=== PATIENT | male | born 1980 | race Caucasian/White ===

== ENCOUNTER 2017-10-14 11:41 | Inpatient (IN) | payer OTHER ==
[~2017-10-14] VITALS: Ht 190.5 cm; Wt 86.2 kg
--- NOTE | 2017-10-14 11:45 | NUR ---
Pre Admission Assessment Shank Boner asked to evaluate pt for appropriateness for admission to [facility]. Shank Boner encounters pt in intake office, dressed in street clothes. A/O x4 and able to make needs known. Pt has an anxious affect with depressed mood. Pt with poor eye contact, fidgety and hyperactive. Pt complains of nausea, anxiety, tremors, tactile hallucinations and chills. Initial CIWA 20. VS 158/97, 96, 97.8, 18 and 96%. Pt in stable physical condition, denies any medical history. Dr. Soto present for interview and fha underwriter conducted entire admit assessment on pre-interview. Pt in need of medical management of ETOH withdrawals. Will continue to monitor, support and encourage according to plan of care.
[2017-10-14] MEDS ORDERED: DICYCLOMINE HCL 20 MG TABLET PO PRN (12:30)
[2017-10-14] MEDS ORDERED: NICOTINE POLACRILEX 4 MG GUM-PK OF TEN BC PRN (12:30)
[2017-10-14] MEDS ORDERED: LORAZEPAM 2 MG/1 ML VIAL IM PRN (12:30)
[2017-10-14] MEDS ORDERED: ONDANSETRON 4 MG/2 ML VIAL IM PRN (12:30)
[2017-10-14] MEDS ORDERED: IBUPROFEN 400 MG TABLET PO PRN (12:30)
[2017-10-14] MEDS ORDERED: ONDANSETRON ODT 4 MG TAB.RAPDIS SL PRN (12:30)
[2017-10-14] MEDS ORDERED: THIAMINE HCL 200 MG/2 ML VIAL IM ONE (12:30)
[2017-10-14] MEDS ORDERED: ACETAMINOPHEN 325 MG TABLET PO PRN (12:30)
[2017-10-14] MEDS ORDERED: LORAZEPAM 1 MG TABLET PO PRN (12:30)
[2017-10-14] MEDS ORDERED: NICOTINE 14 MG/24HR PATCH TD PRN (12:30)
[2017-10-14] MEDS ORDERED: MAG HYDROX/AL HYDROX/SIMETH 30 ML LIQUID UDC PO PRN (12:30)
[2017-10-14] MEDS ORDERED: diphenhydrAMINE 50 MG CAPSULE PO PRN (12:30)
[2017-10-14] MEDS ORDERED: MIRALAX 17 GM POWD.PACK PO PRN (12:30)
[2017-10-14] MEDS ORDERED: LOPERAMIDE HCL 2 MG CAPSULE PO PRN ×2 (12:30)
--- NOTE | 2017-10-14 12:40 | NUR ---
Admission Pt presents to [facility] for admission for medical management of ETOH withdrawals. Pt presents in active withdrawal, with initial CIWA of 20. Pt complains of nausea, anxiety, chills, Tactile Hallucinations and sensitivity to light. Pt has been drinking approxiametly 3 to 4 pints of hard ETOH or 4 or 5 bottles of wine daily, based upon availability. Pt endorses having no beverage of choice and has been using what he can find. Pt had been sober for 72 days following a [address] [facility] 77 days ago. Pt relapsed after 72 days of sobriety and has been drinking for 14 days. Pt's last use was in flight from [place], pt consumed 4 or 5 shots of ETOH. 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 Pt resides in [place] with his and 4 children. Pt endorses having relapsed d/t not following his Sponsors lead and getting away from doing the steps. " I stopped going to meeting, I stopped the steps ... " Pt does endorse a longest period of sobriety about 3/4 years ago, when pt was sober for 1 year. Pt endorses a need for continued follow-up and continued sobriety. Pt is planing on going t oa 28 day RTC after completing his detoxification. This will be pt's first RTC and pt is hopeful and motivated. Pt denies any PMH/PPH. Pt does have a history of withdrawal induced seizures a couple years ago. Pt denies "overdose", but endorses "black-out drinking," " my tells me of things I don't remember." Pt denies any 5150 or psych hospitalizations. Pt states, " I am tired, I can't do this anymore." Pt endorses a PCP of Dr. Anthony Silva in [place]. Pt had prescribed pt Librium, pt stopped taking about 3 or 4 weeks. Pt brought with to the hospital, pt signed for and delivered t opharmacy. Pt aware medication will be destroyed.
[2017-10-14] MEDS: LORAZEPAM 1 MG TABLET PO SCH ×3 (13:17→21:49)
[2017-10-14] MEDS: LORAZEPAM 1 MG TABLET PO PRN (14:37)
--- NOTE | 2017-10-14 14:37 | NUR ---
PRN Zofran(IM) and Ativan Pt complain of emesis x3, mostly phlegm from pt "gagging." Director Biomedical Engineering administered Zofran IM per order for immediate relief of nausea. Director Biomedical Engineering conducted PRN CIWA assessment, pt scored 24 and typewriter tester administered medication per order, pt tolerating both well. Will continue to monitor, support and encourage according to plan of care.
[2017-10-14 14:48] LABS: *AMPHETAMINE, URINE NEGATIVE (NEGATIVE); *BARBITURATE, URINE NEGATIVE (NEGATIVE); *CANNABINOID, URINE NEGATIVE (NEGATIVE); *COCCAINE, URINE NEGATIVE (NEGATIVE); *OPIATE, URINE NEGATIVE (NEGATIVE); *PHENCYCLIDINE SCREEN,URINE NEGATIVE (NEGATIVE)
--- NOTE | 2017-10-14 15:07 | NUR ---
PRN Re-Assessment No further bouts of emesis and pt is resting. Will continue to monitor, support and encourage according to plan of care.
[2017-10-14 15:28] LABS: BASOPHILS # (AUTO) 0.1 K/uL (0.0-8.0); BASOPHILS % (AUTO) 0.5 % (0.0-2.0); EOSINOPHILS # (AUTO) 0.1 K/uL (0.0-0.7); EOSINOPHILS % (AUTO) 0.6 % (0.0-7.0); HEMATOCRIT 46.5 % (36.7-47.1); HEMOGLOBIN 16.2 g/dL (12.5-16.3); LYMPHOCYTES # (AUTO) 2.2 K/uL (20.0-40.0); LYMPHOCYTES % (AUTO) 14.5 % (20.5-51.5); MEAN CORPUSCULAR HEMOGLOBIN 31.4 uug (23.8-33.4); MEAN CORPUSCULAR HGB CONC 35 g/dL (32.5-36.3); MEAN CORPUSCULAR VOLUME 90.3 fL (73.0-96.2); MONOCYTES # (AUTO) 1.2 K/uL (2.0-10.0); MONOCYTES % (AUTO) 7.5 % (0.0-11.0); NEUTROPHILS # (AUTO) 11.7 K/uL (1.8-8.9); NEUTROPHILS % (AUTO) 76.9 % (38.5-71.5); PLATELET COUNT (AUTO) 225 K/uL (152-348); RED BLOOD CELL COUNT(AUTO) 5.16 MIL/uL (4.06-5.63); WHITE BLOOD COUNT (AUTO) 15.3 K/uL (3.6-10.2)
--- NOTE | 2017-10-14 15:37 | NUR ---
PRN Ativan Re-Assessment Re-Assessment CIWA 15, pt endorses relief from nausea, chills, tremors have improved and TH have decreased. Will continue to monitor, support and encourage according to plan of care.
[2017-10-14 15:39] LABS: BILIRUBIN,TOTAL 0.6 mg/dL (0.2-1.0); CREATININE 1.2 mg/dL (0.6-1.3); MAGNESIUM 1.4 mg/dL (1.8-2.4); POTASSIUM 3.9 mmol/L (3.5-5.1); TOTAL PROTEIN, SERUM 6.3 g/dL (6.4-8.2)
[2017-10-14 16:30] VITALS: BP 122/86
--- NOTE | 2017-10-14 19:04 | NUR ---
End of Shift Airport Planner provided report on 37 year old male admitted by bid writer this afternoon. Pt was admitted for medical management of ETOH withdrawals. Pt reports NKA, full code and regular diet. Pt reports no PMH/PPH. Pt does have a history of withdrawal induced seizures, last couple years ago. Pt was admitted with initial CIWA 20. Was administered a PRN dose of Ativan 2mg(Anxiety/withdrawals) at 1437 d/t CIWA 24. Pt had emesis x3, complained of anxiety, chills, nausea and had moderate tremors. Pt tolerated well and re-assessed CIWA 15. Tremors and nausea and chills have improved, per pt. Last CIWA 11. Pt is cooperative and anxious. A/O x4 and makes his needs known. Clear of thought and speech with a linear thought process. Bed in low position, wheels locked and side rails up x2.
--- NOTE | 2017-10-14 19:30 | NUR ---
Start of Shift Note Received a 37 y/o male px, admitted for medically supervised withdrawal from ETOH. Px is placed on Ativan taper started today 10/14/2017. Last reported CIWA 11 by AM shift nurse. During the rounds at 1930, px is awake on bed in fowlers position. Px looks unshaven and sweaty. Px stated that his anxiety is 5/10. Px complained of nausea. Bed on lowest position, side rails up 2x, and call light within reach.
[2017-10-14 20:00] VITALS: BP 140/98
--- NOTE | 2017-10-14 21:48 | NUR ---
PRN meds Px received Zofran 4 mg/tab, 1 tab SL for nausea, Clonidine 0.1 mg/tab, 1 tab PO for BP= 140/98 and Motrin 400 mg/tab, 1 tab for body aches of 5/10. We'll continue to monitor.
[2017-10-14] MEDS: CLONIDINE HCL 0.1 MG TABLET PO PRN (21:49)
--- NOTE | 2017-10-14 22:20 | NUR ---
Reassessment of nausea Px stated that his nausea improved.
[2017-10-14 22:50] VITALS: BP 141/87
--- NOTE | 2017-10-14 22:50 | NUR ---
Reassessment of body aches Px stated that his body aches is now 2-3/10 from 11/10 after an hour of administration of Motrin 400 mg PO.
--- NOTE | 2017-10-14 22:50 | NUR ---
Reassessment of BP Px's BP= 141/87 after an hour of administration of Clonidine 0.1 mg PO. We'll continue to monitor.
[2017-10-15] VITALS: BP 147/90
[2017-10-15 04:00] VITALS: BP 143/88
[2017-10-15 06:07] LABS: HEPATITIS B SURFACE AG Negative (Negative)
--- NOTE | 2017-10-15 07:10 | NUR ---
START OF SHIFT PATIENT UIS A 37 YR OLD MALE ADMITTED TO [facility] ON 10/14/17 FOR A MEDICALLY SUPERVISED WITHDRAWAL FROM ALCOHOL. PATIENT IS ON A 5 DAY ATIVAN TAPER AND THIS IS DAY 2. PRN MEDS GIVEN ON PM SHIFT : ZOFRAN, MOTRIN AND CLONIDINE. PATIENT SLEPT FOR 7+ HOURS AND LAST CIWA @ 0400 WAS 8. PATIENT IS ASLEEP IN BED AT THIS TIME, BREATHING EVEN AND UNLABORED, CALL LIGHT WITHIN REACH, WILL CONTINUE TO FOLLOW MD PLAN OF CARE.
--- NOTE | 2017-10-15 07:13 | NUR ---
End of Shift Note During the shift at 2148, px received Zofran 4 mg SL for nausea, it was effective. Clonidine 0.1 mg PO for high BP. BP at 0400 was 143/88. Motrin 400 mg PO given for pain of 5/10. It was effective. Px's oral intake is 1,100 ml, voided 2x, No BM. Px slept for 7.5 hours. At 0630, px is asleep on bed in right side lying position. Bed on lowest position, side rails up 2x, and call light within reach. Last CIWA 8. Px endorsed to AM shift nurse.
[2017-10-15 08:00] VITALS: BP 153/105
[2017-10-15] MEDS: LORAZEPAM 1 MG TABLET PO SCH ×3 (08:00→21:12)
[2017-10-15] MEDS: MULTIVITAMINS,THERAPEUTIC TABLET PO SCH (08:00)
[2017-10-15] MEDS: FOLIC ACID 1 MG TABLET PO SCH (08:00)
--- NOTE | 2017-10-15 08:00 | NUR ---
PRN CLONIDINE BP 153/105, 0.1MG PO CLONIDINE GIVEN, WILL RECHECK IN 1 HR NO C/O HEADACHE OR BLURRED VISION
[2017-10-15] MEDS: CLONIDINE HCL 0.1 MG TABLET PO PRN (08:01)
[2017-10-15] MEDS: THIAMINE HCL 100 MG TABLET PO SCH (08:01)
[2017-10-15] MEDS ORDERED: MAGNESIUM OXIDE 400 MG TABLET PO ONE (09:00)
[2017-10-15] MEDS ORDERED: TUBERCULIN,PURIF.PROT.DERIV. 5 TU/0.1 ML TEST ID ONE (09:00)
--- NOTE | 2017-10-15 09:00 | NUR ---
PPD DECLINED BY PATIENT
--- NOTE | 2017-10-15 09:00 | NUR ---
PRN REASSESS BP 126/91, PRN CLONIDINE EFFECTIVE, WILL CONTINUE TO MONITOR CLOSELY
[2017-10-15 12:30] VITALS: BP 140/100
[2017-10-15] MEDS: LORAZEPAM 1 MG TABLET PO PRN (12:50)
--- NOTE | 2017-10-15 12:50 | NUR ---
PRN ATIVAN 2MG PO ATIVAN GIVEN FOR INCREASED ANXIETY CIWA 14, WILL REASSESS
--- NOTE | 2017-10-15 13:50 | NUR ---
PRN REASSESS ATIVAN 2MG PO EFFECTIVE, PT STATES HE FEELS LESS ANXIOUS CIWA NOW 8 ( WAS 13)
[2017-10-15 16:00] VITALS: BP 132/92
--- NOTE | 2017-10-15 18:52 | NUR ---
END OF SHIFT : PATIENT IS A 37 YR OLD MALE ADMITTED TO [facility] ON 10/14/17 FOR A MEDICALLY SUPERVISED WITHDRAWAL FROM ALCOHOL. PATIENT IS ON A 5 DAY ATIVAN TAPER AND THIS IS DAY 2. PATIENTS WITHDRAWAL SYMPTOMS INCLUDE : DIAPHORESIS, HEADACHE, TROUBLE CONCENTRATING, SEVERE ANXIETY AND AGITATION. PATIENT HAS ATTENDED ALL GROUPS TODAY AND IS INTERACTING WITH HIS PEERS. PRN MEDS GIVEN ON THIS SHIFT : CLONIDINE 0.1MG PO AND ATIVAN 2MG PO. PATIENT HAD A FLUID INTAKE OF 2350 ML,3 VOIDS AND 2 BM. LAST CIWA WAS 10 @ 1600. CONTINUE TO FOLLOW MD PLAN OF CARE.
--- NOTE | 2017-10-15 19:30 | NUR ---
START OF SHIFT NOTE : Pt. is 37 year old male admitted admitted to [facility] on 10/14/2017 for ETOH medically supervised withdrawal. Pt reports NKA, full code and regular diet. Pt. placed on Ativan taper, started on 10/14/2017, tolerating well. Pt reports no PMH/PPH. Pt does have a history of withdrawal induced seizures, last couple years ago. Last CIWA=10 at 16:00 , PRN Clonidine, Ativan given as ordered during a day shift. Pt. states he feels better, thinks a lot about his professional and private future, he is cooperative, friendly, but has sad facial expression, complains of difficulty falling and staying asleep, increased level of anxiety. Encouraged patient to participate in group therapies and verbalize feelings.Encouraged to independently perform hygiene care. Education provided in safety and hygiene care. Patient verbalized understanding. Safety measures in place : bed on lowest position with side rails x2 up for safety, all light within reach. Will continue to monitor closely and offer help.
[2017-10-15 20:00] VITALS: BP 142/95
--- NOTE | 2017-10-15 21:00 | NUR ---
PRN VISTARIL, DESYREL Pt. complains of difficulty falling asleep, insomnia, increased level of anxiety. PRN VISTARIL, DESYREL given as ordered. Safety measures in place : bed on lowest position with side rails x2 up for safety, call light within reach. Will continue to monitor closely and offer help.
[2017-10-15] MEDS: TRAZODONE 50 MG TABLET PO PRN (21:12)
[2017-10-15] MEDS: HYDROXYZINE PAMOATE 25 MG CAPSULE PO PRN (21:12)
--- NOTE | 2017-10-15 22:00 | NUR ---
RE-ASSESSMENT MILA UMAÑA Pt. is sleeping, RR=16, unlabored and even . Safety measures in place : bed on lowest position with side rails x2 up for safety, call light within reach. Will continue to monitor closely and offer help.
--- NOTE | 2017-10-16 06:44 | NUR ---
END OF SHIFT NOTE : Pt. is 37 year old male admitted admitted to [facility] on 10/14/2017 for ETOH medically supervised withdrawal. Pt reports NKA, full code and regular diet. Pt. placed on Ativan taper, started on 10/14/2017, tolerating well. PRN BENADRYL given during assistant shift supervisor. 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 He also took shower late in the evening, shaved himself. CIWA taken when pt. was awake, last CIWA=8 at 04:00 . Intake= 1000ml, voided x2, BM=x1 , slept=7 1/2 hours. Safety measures in place : bed on lowest position with side rails x2 up for safety, all light within reach. Will continue to monitor closely and offer help.
--- NOTE | 2017-10-16 07:23 | NUR ---
Start of shift note; Received report from night nurse. Patient is a 37 year old male admitted on 10/14/17 for ETOH withdrawals. Patient was placed on Ativan taper. Patient is AOX4, appears anxious but cooperative, complaining of hot and cold sweats. Educated patient regarding the importance of compliance to treatment and medication regime. Encouraged patient to participate in group Therapy and activities. All safety measures. Will continue to monitor patient.
[2017-10-16 07:41] LABS: BILIRUBIN,DIRECT 0.1 mg/dL (0.0-0.2); BILIRUBIN,TOTAL 0.4 mg/dL (0.2-1.0); CREATININE 1.1 mg/dL (0.6-1.3); MAGNESIUM 1.9 mg/dL (1.8-2.4); TOTAL PROTEIN, SERUM 5.7 g/dL (6.4-8.2)
[2017-10-16 08:00] VITALS: BP 131/89
[2017-10-16 08:08] LABS: BASOPHILS % (AUTO) 0.5 % (0.0-2.0); EOSINOPHILS # (AUTO) 0.5 K/uL (0.0-0.7); HEMATOCRIT 43.5 % (36.7-47.1); HEMOGLOBIN 14.9 g/dL (12.5-16.3); LYMPHOCYTES # (AUTO) 1.8 K/uL (20.0-40.0); LYMPHOCYTES % (AUTO) 19.8 % (20.5-51.5); MEAN CORPUSCULAR HEMOGLOBIN 31.4 uug (23.8-33.4); MEAN CORPUSCULAR HGB CONC 34 g/dL (32.5-36.3); MEAN CORPUSCULAR VOLUME 91.4 fL (73.0-96.2); MONOCYTES % (AUTO) 10.8 % (0.0-11.0); NEUTROPHILS # (AUTO) 5.7 K/uL (1.8-8.9); NEUTROPHILS % (AUTO) 62.9 % (38.5-71.5); PLATELET COUNT (AUTO) 172 K/uL (152-348); RED BLOOD CELL COUNT(AUTO) 4.76 MIL/uL (4.06-5.63)
[2017-10-16] MEDS: FOLIC ACID 1 MG TABLET PO SCH (08:26)
[2017-10-16] MEDS: THIAMINE HCL 100 MG TABLET PO SCH (08:26)
[2017-10-16] MEDS: MULTIVITAMINS,THERAPEUTIC TABLET PO SCH (08:26)
[2017-10-16] MEDS ORDERED: LORAZEPAM 1 MG TABLET PO SCH ×2 (09:00→21:00)
[2017-10-16 12:00] VITALS: BP 130/98
[2017-10-16] MEDS: LORAZEPAM 1 MG TABLET PO SCH ×2 (12:41→16:35)
[2017-10-16 16:00] VITALS: BP 128/98
--- NOTE | 2017-10-16 18:15 | NUR ---
End of shift note; Patient is AOX4. Patient remained compliant with treatment plan and medication regime. Medications were effective in reducing withdrawal symptoms. Patient presented with anxiety, flushed face, tremors, complaining of hot and cold sweats with last CIWA score of 6. All safety measures secured. Patient participated in group therapy and activities. Met all needs.
[2017-10-16 20:00] VITALS: BP 155/90
--- NOTE | 2017-10-16 21:00 | NUR ---
PRN VISTARIL, DARWINYREL, MoM Pt. complains of difficulty falling asleep, insomnia, increased level of anxiety, constipation. PRN FABITARIL, MILA, MoM given as ordered. Safety measures in place : bed on lowest position with side rails x2 up for safety, call light within reach. Will continue to monitor closely and offer help.
--- NOTE | 2017-10-16 21:00 | NUR ---
START OF SHIFT NOTE : Pt. is 37 year old male admitted admitted to [facility] on 10/14/2017 for ETOH medically supervised withdrawal. Pt reports NKA, full code and regular diet. Pt. placed on Ativan taper, started on 10/14/2017, tolerating well. Pt reports no PMH/PPH. Pt does have a history of withdrawal induced seizures, last couple years ago. Last CIWA=6 at 16:00 , NO PRN given during a day shift. Pt. states he feels better, thinks a lot about his family future, his professional life , he is friendly, but has labile mood time to time, complains of insomnia, increased level of anxiety. Pt. is participating in the meeting right now. Safety measures in place : bed on lowest position with side rails x2 up for safety, all light within reach. Will continue to monitor closely and offer help.
[2017-10-16] MEDS: HYDROXYZINE PAMOATE 25 MG CAPSULE PO PRN (21:24)
[2017-10-16] MEDS: TRAZODONE 50 MG TABLET PO PRN (21:24)
[2017-10-16] MEDS: MAGNESIUM HYDROXIDE 30 ML LIQUID UDC PO PRN (21:24)
--- NOTE | 2017-10-16 22:00 | NUR ---
RE-ASSESSMENT MILA UMAÑA, MoM Pt. is sleeping, RR=16, unlabored and even . Safety measures in place : bed on lowest position with side rails x2 up for safety, call light within reach. Will continue to monitor closely and offer help.
[2017-10-17] MEDS: MAGNESIUM HYDROXIDE 30 ML LIQUID UDC PO PRN (06:30)
--- NOTE | 2017-10-17 06:48 | NUR ---
END OF SHIFT NOTE : Pt. is 37 year old male admitted admitted to [facility] on 10/14/2017 for ETOH medically supervised withdrawal. Pt reports NKA, full code and regular diet. Pt. placed on Ativan taper, started on 10/14/2017, tolerating well. PRN BENADRYL given during cook night. 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 He also took shower late in the evening, shaved himself. CIWA taken when pt. was awake, last CIWA=6 at 04:00 . Intake= 500ml, voided x2, slept=8 hours. Safety measures in place : bed on lowest position with side rails x2 up for safety, all light within reach. Will continue to monitor closely and offer help.
--- NOTE | 2017-10-17 07:37 | NUR ---
Start of shift note; Received report from night nurse. Patient is a 37 year old male admitted on 10/14/17 for ETOH withdrawals. Patient was placed on Ativan taper. Patient is AOX4, appears anxious but cooperative, complaining of hot and cold sweats. Educated patient regarding the importance of compliance to treatment and medication regime. Encouraged patient to participate in group Therapy and activities. Patient stated, "i want to leave today or tomorrow to transfer to treatment Center", educated patient regarding the importance of completing treatment and explained the risk and consequences of leaving without completing program, patient verbalized understanding. All safety measures. Will continue to monitor patient.
[2017-10-17 08:00] VITALS: BP 127/89
[2017-10-17] MEDS: THIAMINE HCL 100 MG TABLET PO SCH (08:19)
[2017-10-17] MEDS: MULTIVITAMINS,THERAPEUTIC TABLET PO SCH (08:20)
[2017-10-17] MEDS: FOLIC ACID 1 MG TABLET PO SCH (08:20)
[2017-10-17] MEDS: LORAZEPAM 1 MG TABLET PO SCH ×3 (08:20→21:06)
[2017-10-17 12:00] VITALS: BP 134/98
[2017-10-17] MEDS ORDERED: CLON0.1T14 PO (13:29)
[2017-10-17] MEDS ORDERED: HYDR-3895 PO (13:29)
[2017-10-17] MEDS ORDERED: TRAZ-144 PO (13:29)
[2017-10-17 16:00] VITALS: BP 161/107
[2017-10-17] MEDS: CLONIDINE HCL 0.1 MG TABLET PO PRN (16:46)
--- NOTE | 2017-10-17 16:47 | NUR ---
PRN medication; Patient's blood pressure noted to be elevated 161/107, PRN Clonidine 0.1mg PO given for elevated BP. Will continue to monitor patient for effectiveness of medication.
--- NOTE | 2017-10-17 17:47 | NUR ---
Re-assessment; Patient's BP went down to 132/88, PRN clonidine noted to be effective.
--- NOTE | 2017-10-17 19:30 | NUR ---
START OF SHIFT NOTE : Pt. is 37 year old male admitted admitted to [facility] on 10/14/2017 for ETOH medically supervised withdrawal. Pt reports NKA, full code and regular diet. Pt. placed on Ativan taper, started on 10/14/2017, tolerating well. Pt reports no PMH/PPH. Pt does have a history of withdrawal induced seizures, last couple years ago. Last CIWA=6 at 16:00 , PRN Clonidine given during a day shift. Pt. states he feels better day by day , thinks a lot about his addiction, his professional life , he is cooperative, but has labile mood time to time, complains of insomnia, increased level of anxiety. Pt. participates in the meeting and socialized with other clients. Safety measures in place : bed on lowest position with side rails x2 up for safety, all light within reach. Will continue to monitor closely and offer help.
[2017-10-17 20:00] VITALS: BP 146/95
--- NOTE | 2017-10-17 21:00 | NUR ---
PRN VISTARIL, DESYREL Pt. complains of difficulty falling asleep, insomnia, increased level of anxiety. PRN VISTARIL, DESYREL, given as ordered. Safety measures in place : bed on lowest position with side rails x2 up for safety, call light within reach. Will continue to monitor closely and offer help.
[2017-10-17] MEDS: HYDROXYZINE PAMOATE 25 MG CAPSULE PO PRN (21:07)
[2017-10-17] MEDS: TRAZODONE 50 MG TABLET PO PRN (21:07)
--- NOTE | 2017-10-18 06:50 | NUR ---
END OF SHIFT NOTE : Pt. is 37 year old male admitted admitted to [facility] on 10/14/2017 for ETOH medically supervised withdrawal. Pt reports NKA, full code and regular diet. Pt. placed on Ativan taper, started on 10/14/2017, tolerating well. PRN VISTARIL, DESYREL given during a caustic cresylate shift superintendent. Pt. spent time with other clients till late of the evening, friendly and cooperative. CIWA taken when pt. was awake, last CIWA=6 at 04:00 . Intake= 1,500ml, voided x3, slept=6 hours. Safety measures in place : bed on lowest position with side rails x2 up for safety, all light within reach. Will continue to monitor closely and offer help.
--- NOTE | 2017-10-18 07:30 | NUR ---
Start of shift note; Received report from night nurse. Patient is a 37 year old male admitted on 10/14/17 for ETOH withdrawals. Patient was placed on Ativan taper. Patient is AOX4, appears anxious but cooperative, complaining of hot and cold sweats. Educated patient regarding the importance of compliance to treatment and medication regime. Encouraged patient to participate in group Therapy and activities. Patient is on his last day of taper, to be evaluated for possible discharge tomorrow. All safety measures. Will continue to monitor patient.
[2017-10-18 08:00] VITALS: BP 130/74
[2017-10-18] MEDS: THIAMINE HCL 100 MG TABLET PO SCH (08:30)
[2017-10-18] MEDS: MULTIVITAMINS,THERAPEUTIC TABLET PO SCH (08:30)
[2017-10-18] MEDS: FOLIC ACID 1 MG TABLET PO SCH (08:30)
[2017-10-18] MEDS ORDERED: LORAZEPAM 1 MG TABLET PO SCH ×2 (09:00)
[2017-10-18 12:00] VITALS: BP 132/76
[2017-10-18 16:00] VITALS: BP 163/107
[2017-10-18] MEDS: CLONIDINE HCL 0.1 MG TABLET PO PRN (16:42)
--- NOTE | 2017-10-18 16:43 | NUR ---
PRN medication; Patient appears anxious with current BP of 163/107. PRN Clonidine 0.1mg PO for elevated BP. Will continue to monitor patient for effectiveness of medication.
--- NOTE | 2017-10-18 17:43 | NUR ---
Re-assessment; PRN medication noted to be effective, BP went down to 132/75.
--- NOTE | 2017-10-18 18:46 | NUR ---
End of shift note; Patient is AOX4. Patient remained compliant with treatment plan and medication regime. Medications were effective in reducing withdrawal symptoms. Patient presented with anxiety, flushed face, tremors, complaining of hot and cold sweats with last CIWA score of 6. All safety measures secured. Patient participated in group therapy and activities. Patient is medically cleared for discharge tomorrow per MD. Met all needs.
[2017-10-18 20:00] VITALS: BP 169/111
--- NOTE | 2017-10-18 20:00 | NUR ---
Start of Shift Note Received a 37 y/o male px, admitted for medically supervised withdrawal from ETOH. Px is to be D/C tomorrow 10/19/2017. Px completed 5 day Ativan taper. Px tolerated well. Last reported CIWA 6 by AM shift nurse. During the rounds at 1999, px is awake standing inside his room. Px looks anxious and unshaven. Some snacks noted on top of cabinet. Px stated that his anxiety is 6/10. BP= 169/111 with WI=99. Bed on lowest position, side rails up 2x, and call light within reach. We'll continue to monitor.
[2017-10-18] MEDS ORDERED: hydrALAZINE HCL 50 MG TABLET PO ONE (20:30)
[2017-10-18] MEDS ORDERED: hydrALAZINE HCL 50 MG TABLET PO PRN (20:30)
--- NOTE | 2017-10-18 20:41 | NUR ---
1x dose Apresoline Doctor orders 1x dose of Apresoline 50 mg/tab, 1 tab PO for BP= 169/111. We'll continue to monitor.
[2017-10-18 21:45] VITALS: BP 138/81
--- NOTE | 2017-10-18 21:45 | NUR ---
Reassessment of BP BP= 138/81 as of the moment. We'll continue to monitor.
[2017-10-19] VITALS: BP 130/77
[2017-10-19 04:00] VITALS: BP 127/82
--- NOTE | 2017-10-19 04:00 | NUR ---
CIWA deferred CIWA deferred at 0000 and 0400 due to the px is asleep, to assess if the px is awake per doctor's order. We'll continue to monitor.
--- NOTE | 2017-10-19 07:02 | NUR ---
End of Shift Note Px is to be D/C today, 10/19/2017. During the shift at 2040, px received Apresoline 50 mg PO as 1x dose for BP= 169/111. It was effective. BP= 127/82 at 0400. Last CIWA 6. Px's oral intake is 1200 ml., voided 2x, and BM 1x. Px slept for 8 hours. At 0630, px is awake on bed in fowlers position watching TV. Bed on lowest position, side rails up 2x, and call light within reach. We'll continue to monitor. Px endorsed to AM shift nurse.
--- NOTE | 2017-10-19 07:46 | NUR ---
Start of shift note; Received report from night nurse. Patient is a 37 year old male admitted on 10/14/17 for ETOH withdrawals. Patient was placed on Ativan taper. Patient is AOX4, appears anxious but cooperative, complaining of hot and cold sweats. Educated patient regarding the importance of compliance to treatment and medication regime. Encouraged patient to participate in group Therapy and activities. Patient is medically cleared for discharge today. All safety measures. Will continue to monitor patient.
[2017-10-19 08:00] VITALS: BP 134/74
[2017-10-19 08:06] VITALS: BP 162/108
[2017-10-19] MEDS: CLONIDINE HCL 0.1 MG TABLET PO PRN (08:06)
[2017-10-19] MEDS: THIAMINE HCL 100 MG TABLET PO SCH (08:06)
[2017-10-19] MEDS: MULTIVITAMINS,THERAPEUTIC TABLET PO SCH (08:06)
[2017-10-19] MEDS: FOLIC ACID 1 MG TABLET PO SCH (08:06)
[2017-10-19] MEDS ORDERED: LORAZEPAM 1 MG TABLET PO SCH (09:00)
--- NOTE | 2017-10-19 09:15 | NUR ---
Discharge note; Patient is AOX4, patient is medically cleared for discharge today per MD. Patient completed treatment without any adverse reactions. Patient denies S/I and denies H/I. Patient was escorted by RN IMAGING out of the hospital. Patient left the facility at exactly 0915 on 10/19/17. Patient left in a stable condition.
== END 2017-10-19 09:15 | disposition other institution (70) | DRG 895 ==
LOC: SRC 11:41
PROVIDERS: ADMIT Internal Medicine; ATTEND Internal Medicine
PROC: HZ2ZZZZ Detoxification Services for Substance Abuse Treatment (ICD-10-PCS; principal; 2017-10-14)
PROC: HZ41ZZZ Group Counseling for Substance Abuse Treatment, Behavioral (ICD-10-PCS; 2017-10-15)
PROC: HZ31ZZZ Individual Counseling for Substance Abuse Treatment, Behavioral (ICD-10-PCS; 2017-10-17)
DX: F10.232 Alcohol dependence with withdrawal with perceptual disturbance (principal); I15.9 Secondary hypertension, unspecified; E83.42 Hypomagnesemia; E87.8 Other disorders of electrolyte and fluid balance, not elsewhere classified; E87.1 Hypo-osmolality and hyponatremia; K70.10 Alcoholic hepatitis without ascites; F13.90 Sedative, hypnotic, or anxiolytic use, unspecified, uncomplicated; F17.210 Nicotine dependence, cigarettes, uncomplicated; Y90.2 Blood alcohol level of 40-59 mg/100 ml; F41.9 Anxiety disorder, unspecified; Z81.1 Family history of alcohol abuse and dependence; Z91.89 Other specified personal risk factors, not elsewhere classified; E86.1 Hypovolemia; D72.829 Elevated white blood cell count, unspecified
CPT/HCPCS: 36415; 70030-TC; 80307; 83735; 85025; 86580; 86592; 86705; 86803; 87340; 87806; A4663; G0480; J2405; J3411; Q0162